=== PATIENT | female | born 1990 | race Caucasian/White ===

== ENCOUNTER 2016-07-25 00:04 | Emergency (ER) | payer OTHER ==
[~2016-07-25] VITALS: Ht 157.5 cm; Wt 64.8 kg
[2016-07-25 00:13] VITALS: BP 123/85; PULSE 99; RESP 20; TEMP 98.2; O2SAT 95
--- NOTE | 2016-07-25 00:35 | PD ---
HPI Chief Complaint: GI Complaint Time Seen by Provider: 00:20 Travel History International Travel<30 days: No Contact w/Intl Traveler<30days: No Traveled to known affect area: No History of Present Illness HPI This is a 26-year-old female who presents to the emergency department with vomiting for the past 8 hours, constant, vomiting every half hour to hour, associated with epigastric discomfort, moderate severity. She denies any associated fevers, chills, loose stools or dysuria. Her last menstrual cycle was 2 weeks ago. She says her mom was sick yesterday with similar symptoms and was throwing up. [facility] Past Medical History Medical History: Denies Significant Hx ?: Unknown LMP: 07/08/16 Social History Tobacco Use: No Allergies-Medications (Allergen,Severity, Reaction): Coded Allergies: No Known Allergies (Unverified , 07/25/16) Reported Meds & Prescriptions Reported Meds & Active Scripts Active Reported [ Control Pills] PO DAILY Review of Systems Except as stated in HPI: all other systems reviewed are Neg Physical Exam Narrative GENERAL:Well appearing, no acute distress. Smells like ketones SKIN: Dry with skin tenting HEAD: Atraumatic. Normocephalic. EYES: Pupils equal and round. No injection or drainage. ENT: Dry mucous membranes. NECK: Trachea midline. CARDIOVASCULAR: Regular rate and rhythm. No murmur appreciated. RESPIRATORY: Clear to auscultation. Breath sounds equal bilaterally. GASTROINTESTINAL: Abdomen soft, tender to palpation in the epigastrium with no rebound or guarding. MUSCULOSKELETAL: No obvious deformities. NEUROLOGICAL: Awake and alert. No obvious cranial nerve deficits. Moving all extremities. PSYCHIATRIC: Appropriate mood and affect; insight and judgment normal. Data Data Last Documented VS Vital Signs Date Time Temp Pulse Resp B/P Pulse Ox O2 Delivery O2 Flow Rate FiO2 07/25/16 00:27 07/25/16 00:13 98.2 99 20 95 Orders Complete Blood Count With Diff (07/25/16 00:32) Comprehensive Metabolic Panel (07/25/16 00:32) Lipase (07/25/16 00:32) Urinalysis - C+S If Indicated (07/25/16 00:32) Ed Urine Pregnancytest Poc (07/25/16 00:32) Sodium Chlor 0.9% 1000 Ml Inj (Ns 1000 M (07/25/16 00:45) Ondansetron Inj (Zofran Inj) (07/25/16 00:45) Labs Laboratory Tests Test 07/25/16 07/25/16 00:40 00:51 Urine Collection Type CLEAN CATCH Urine Color YELLOW Urine Turbidity CLEAR Urine pH 5.5 Urine Specific [place] 1.031 Urine Protein TRACE mg/dL Urine Glucose (UA) NEG mg/dL Urine Ketones 80 OR GREATER mg/dL Urine Occult Blood NEG Urine Nitrite NEG Urine Bilirubin NEG Urine Leukocyte Esterase NEG Urine Squamous Epithelial 0-5 /hpf Cells Urine Bacteria OCC /hpf Urine Mucus FEW /lpf Microscopic Urinalysis Comment CULT NOT INDICATED White Blood Count 12.4 TH/MM3 Red Blood Count 5.25 MIL/MM3 Hemoglobin 15.2 GM/DL Hematocrit 44.9 % Mean Corpuscular Volume 85.6 FL Mean Corpuscular Hemoglobin 29.0 PG Mean Corpuscular Hemoglobin 33.9 % Concent Red Cell Distribution Width 11.8 % Platelet Count 221 TH/MM3 Mean Platelet Volume 8.1 FL Neutrophils (%) (Auto) 92.3 % Lymphocytes (%) (Auto) 2.2 % Monocytes (%) (Auto) 2.9 % Eosinophils (%) (Auto) 0.2 % Basophils (%) (Auto) 2.4 % Neutrophils # (Auto) 11.4 TH/MM3 Lymphocytes # (Auto) 0.3 TH/MM3 Monocytes # (Auto) 0.4 TH/MM3 Eosinophils # (Auto) 0.0 TH/MM3 Basophils # (Auto) 0.3 TH/MM3 CBC Comment AUTO DIFF Sodium Level 140 MEQ/L Potassium Level 3.7 MEQ/L Chloride Level 105 MEQ/L Carbon Dioxide Level 25.0 MEQ/L Anion Gap 10 MEQ/L Blood Urea Nitrogen 14 MG/DL Creatinine 0.73 MG/DL Estimat Glomerular Filtration 98 ML/MIN Rate Random Glucose 125 MG/DL Calcium Level 8.8 MG/DL Total Bilirubin 1.3 MG/DL Aspartate Amino Transf 21 U/L (AST/SGOT) Alanine Aminotransferase 51 U/L (ALT/SGPT) Alkaline Phosphatase 48 U/L Total Protein 7.6 GM/DL Albumin 3.8 GM/DL Lipase 367 U/L [facility] Medical Decision Making Medical Screen Exam Complete: Yes Emergency Medical Condition: Yes Interpretation(s) Leukocytosis 92% neutrophils Electrolytes are reassuring Lipase is 367 Urinalysis: No infection test negative Differential Diagnosis Gastroenteritis, appendicitis, dehydration, colitis Narrative Course This is a 26-year-old female who presents to the emergency department with vomiting. Her mom was sick with similar symptoms yesterday. She was placed on a monitor and an IV was established. Labs were obtained which demonstrated a mild leukocytosis with 92% neutrophils. She was tender to palpation in the epigastrium but had no tenderness in the right lower quadrant. I did discuss with her the possibility of appendicitis. I think the likelihood is low. She is not complaining of any abdominal pain at rest. We discussed the risks versus benefits of CT imaging. She agrees to return to the emergency department if her pain worsens or she develops fevers. I suspect she has a viral gastroenteritis which she likely contracted from her mother. She feels much better after IV fluids and antiemetics. Patient will be discharged home. Diagnosis Primary Impression: Viral gastroenteritis Patient Instructions: General Instructions Additional Instructions: If you develop severe or worsening abdominal pain, fever>100.4, persistent vomiting or inability to eat or drink return to the emergency department immediately. Follow up with your primary care physician in 1-2 days for a check-up. Med/Other Pt SpecificInfo: Prescription(s) given Scripts Ondansetron Odt (Zofran Odt)4 Mg Tab4 Mg SL Q6HR PRN (Nausea/Vomiting) #15 TAB Prov:Riddhi Rao MD 07/25/16 Disposition: 01 DISCHARGE HOME Condition: Stable Riddhi Rao MD Jul 25, 2016 00:35
[2016-07-25] MEDS ORDERED: BIRTH CONTROL PILLS PO (00:36)
[2016-07-25] MEDS ORDERED: ONDANSETRON HCL 4 MG/2 ML VIAL IV PUSH ONE (00:45)
[2016-07-25] MEDS ORDERED: SODIUM CHLOR 0.9% 1000 ML INJ 1,000 ML IV ONE (00:45)
[2016-07-25 00:49] LABS: BLOOD, URINE NEG (NEG); GLUCOSE,URINE NEG (NEG); NITRITE,URINE NEG (NEG); PH, URINE 5.5 (5.0-8.5)
[2016-07-25 00:55] LABS: KETONE, URINE 80 OR GREATER mg/dL (NEG)
[2016-07-25 00:56] LABS: METHOD OF COLLECTION CLEAN CATCH; URINE COLOR YELLOW (YELLW/STRAW)
[2016-07-25 00:57] LABS: BACTERIA, URINE OCC /hpf; MUCUS URINE FEW /lpf (OCC); SQUAMOUS EPITHELIAL CELL URINE 0-5 /hpf (0-5)
[2016-07-25 00:58] LABS: COMMENT (UR) CULT NOT INDICATED; CULTURE IF INDICATED CULT NOT INDICATED
[2016-07-25 01:03] LABS: AUTOMATED NEUTROPHIL # 11.4 TH/MM3 (1.8-7.7); BASOPHIL # 0.3 TH/MM3 (0-0.2); BASOPHIL % 2.4 % (0.0-2.0); CHLORIDE 105 MEQ/L (98-107); EOSINOPHIL % 0.2 % (0.0-4.0); HEMATOCRIT 44.9 % (35.0-46.0); LYMPH % 2.2 % (9.0-44.0); LYMPHOCYTE # 0.3 TH/MM3 (1.0-4.8); MEAN CELL VOLUME 85.6 FL (80.0-100.0); MEAN CORPUSCULAR HGB CONC 33.9 % (32.0-36.0); MONO % 2.9 % (0.0-8.0); NEUT % 92.3 % (16.0-70.0); PLATELET COUNT 221 TH/MM3 (150-450); POTASSIUM 3.7 MEQ/L (3.5-5.1); RED BLOOD COUNT 5.25 MIL/MM3 (4.00-5.30); RED CELL DISTRIBUTION WIDTH 11.8 % (11.6-17.2); SODIUM (NA) 140 MEQ/L (136-145); WHITE BLOOD COUNT 12.4 TH/MM3 (4.0-11.0)
[2016-07-25 01:05] LABS: HEMO FLAGS AUTO DIFF
[2016-07-25 01:07] LABS: ANION GAP 10 MEQ/L (5-15); BLOOD UREA NITROGEN 14 MG/DL (7-18)
[2016-07-25 01:09] LABS: ALT (GPT) 51 U/L (10-53); AST (GOT) 21 U/L (15-37)
[2016-07-25 01:10] LABS: GLOMERULAR FILTRATION RATE 98 ML/MIN (>89)
[2016-07-25 01:11] LABS: TOTAL BILIRUBIN ADULT 1.3 MG/DL (0.2-1.0)
[2016-07-25 01:12] LABS: ALKALINE PHOSPHATASE 48 U/L (45-117)
[2016-07-25] MEDS ORDERED: ZOFR4TAB3 SL (01:20)
[2016-07-25 01:21] LABS: PLATELET ESTIMATE SMEAR NORMAL (NORMAL); PLATELET MORPHOLOGY CLUMPED (NORMAL); SCAN/DIFF AUTO DIFF CONFIRMED
[2016-07-25 02:04] VITALS: BP 124/77; TEMP 98.8
== END 2016-07-25 02:07 | disposition home or self-care (01) ==
LOC: PHED 00:04
DX: A08.4 Viral intestinal infection, unspecified (principal)
CPT/HCPCS: 80053; 81001; 83690; 84703; 85025; 96374; 99284; J2405; J7030